=== PATIENT | male | born 1995 | race African-American/Black ===

== ENCOUNTER 2016-10-27 21:24 | Emergency (ER) | payer OTHER ==
[2016-10-27 23:21] LABS: URINE SOURCE CLEAN CATCH
[2016-10-27 23:31] LABS: URINE APPEARANCE CLOUDY; URINE BILIRUBIN NEG (NEG); URINE BLOOD TRACE (NEG); URINE COLOR YELLOW; URINE GLUCOSE NEG (NEG); URINE KETONE NEG (NEG); URINE LEUKOCYTE ESTERASE 2+ (NEG); URINE NITRATE NEG (NEG); URINE PH 5.5 (5-8); URINE PROTEIN TRACE (NEG); URINE SPECIFIC GRAVITY 1.036 (1.003-1.035)
[2016-10-27 23:34] LABS: CULTURE INDICATED? YES; URINE BACTERIA AUWI NEG (NEGATIVE); URINE SQUAMOUS EPITHELIAL CELL NONE SEEN /[HPF]; UWBCS1 AUWI 200-300 (0-5)
[2016-10-27 23:47] LABS: URINE CRYSTALS CALCIUM OXALATE /[HPF]
[2016-10-30 22:43] LABS: CHLAMYDIA TRACH Not Detected (Not Detected); N GONOR Detected (Not Detected)
== END 2016-10-28 00:15 | disposition home or self-care (01) ==
LOC: CED 21:24
PROVIDERS: Emergency Medicine; Nurse Practitioner
DX: R36.9 Urethral discharge, unspecified (principal); Z91.041 Radiographic dye allergy status
CPT/HCPCS: 81003; 87086; 87491; 87591; 96372; 99283; J0696